=== PATIENT | female | born 1965 | race Hispanic/Latino ===

== ENCOUNTER 2018-06-17 00:05 | Emergency (ER) | payer MEDICAID, OTHER ==
[2018-06-17 00:12] VITALS: BP 122/81; PULSE 70; RESP 18; TEMP 98.2; O2SAT 99
--- NOTE | 2018-06-17 00:51 | ED PDOC ---
HPI: Head Injury Chief Complaint (Nursing): Trauma Additional Complaint(s): Pt seen and examined at bedside with attending. 53F p/w injury to RIGHT eyebrow this evening while getting changed for bed and struck her head on the edge of the dresser drawer. She denies any dizziness, LOC, visual changes but was concerned because "there was a lot of blood". She applied ice and came in. Tetanus given 2013 here at [facility]. Past Medical History Vital Signs: Last Vital Signs Temp 36.8 C 06/17/18 00:08 Pulse 70 06/17/18 00:08 Resp 18 06/17/18 00:08 BP 122/81 06/17/18 00:08 Pulse Ox 99 06/17/18 00:08 - Surgical History Surgical History: Tonsillectomy - Family History Family History: States: Unknown Family Hx - Home Medications Home Medications: Ambulatory Orders Medication Instructions Recorded No Known Home Med 12/20/14 - Allergies Allergies/Adverse Reactions: Allergies Allergy/AdvReac Type Severity Reaction Status Date / Time No Known Allergies Allergy Verified 06/17/18 00:08 Review of Systems ROS Statement: Except As Marked, All Systems Reviewed And Found Negative Eyes: Positive for: Pain Physical Exam - Reviewed Vital Signs Reviewed: Yes - Physical Exam Appears: Positive for: Well, Non-toxic, No Acute Distress Head Exam: Negative for: ATRAUMATIC (2mm horizontal laceration within RIGHT superior eyebrow line, not bleeding, already appears to be approximated.) Skin: Positive for: Normal Color, Warm, Dry Eye Exam: Positive for: Normal appearance, EOMI, PERRL Neck: Positive for: Supple Cardiovascular/Chest: Positive for: Regular Rate, Rhythm Respiratory: Positive for: Normal Breath Sounds. Negative for: Crackles, Rales, Rhonchi, Wheezing Gastrointestinal/Abdominal: Positive for: Normal Exam, Soft Neurologic/Psych: Positive for: Alert, Oriented - ECG O2 Sat by Pulse Oximetry: 99 Medical Decision Making Medical Decision Making: Evaluation does not indicate need for sutures, dermabond. Tetanus administered 2013. Disposition - Clinical Impression Clinical Impression: Eyebrow laceration - Patient ED Disposition Is Patient to be Admitted: No Counseled Patient/Family Regarding: Diagnosis - Disposition Disposition: Routine/Home Disposition Time: 00:56 Condition: GOOD Additional Instructions: Return to ER for any dizziness, headaches Apply antimicrobial Clean gently with soap and water Forms: [place] ([place])
== END 2018-06-17 01:06 | disposition home or self-care (01) ==
LOC: H.ER 00:05
DX: S01.121A Laceration with foreign body of right eyelid and periocular area, initial encounter (principal); W22.8XXA Striking against or struck by other objects, initial encounter; Y92.003 Bedroom of unspecified non-institutional (private) residence as the place of occurrence of the external cause